=== PATIENT | female | born 1985 | race Caucasian/White ===

== ENCOUNTER 2016-12-04 15:46 | Inpatient (IN) | payer OTHER ==
[~2016-12-04] VITALS: Ht 162.6 cm; Wt 96.8 kg
[2016-12-26 19:27] VITALS: BP 131/74; PULSE 74; TEMP 98.1
[2016-12-26 19:30] VITALS: BP 131/74; PULSE 74; TEMP 98.1
[2016-12-26 19:37] LABS: BASO % 0.1 % (0.0-2.0); EOS # 0.1 (0.0-0.7); EOS % 0.7 % (0-4.0); GRAN # 10.3 (1.4-6.5); GRAN % 74.6 % (42.2-75.2); HEMOGLOBIN 12.3 g/dl (12.5-16.0); LYMPH # 2.4 (1.2-3.4); LYMPH % 17.5 % (20.0-51.0); MEAN CELL VOLUME 88 fl (80.0-100.0); MEAN CORPUSCULAR HEMOGLOBIN 31 pg (27.0-31.0); MEAN CORPUSCULAR HGB CONC 35 g/dl (33.0-37.0); MEAN PLATELET VOLUME 11.9 fl (7.4-10.4); MONO # 0.9 (0.1-0.6); MONO % 6.4 % (1.7-9.3); PLATELET COUNT 234 K/mm3 (130-400); RED BLOOD COUNT 3.99 M/mm3 (4.10-5.30); REDCELL DISTRIBUTION WIDTH-CV 12.7 % (11.5-14.5); WHITE BLOOD COUNT 13.8 K/mm3 (4.8-10.8)
[2016-12-26] MEDS ORDERED: PRILOTC PO (19:44)
[2016-12-26] MEDS ORDERED: PRENATAL1 TA7 PO (19:45)
[2016-12-26 20:30] VITALS: BP 136/80; PULSE 71
[2016-12-26 21:00] VITALS: BP 119/66; PULSE 65
[2016-12-26 21:30] VITALS: BP 125/74; PULSE 70
[2016-12-26 22:00] VITALS: BP 112/62; PULSE 65
[2016-12-27] VITALS (31 sets, daily range): BP systolic 106–143; BP diastolic 55–94; PULSE 59–111; TEMP 98–98.4
[2016-12-28 03:20] VITALS: BP 130/85; PULSE 73; TEMP 97.2
[2016-12-28 08:00] VITALS: BP 130/88; PULSE 76; TEMP 98
[2016-12-28] MEDS ORDERED: IBU800 M1 PO (11:30)
[2016-12-28] MEDS ORDERED: PERCOCET 325 MG1 TA2 PO (11:30)
== END 2016-12-28 16:10 | disposition home or self-care (01) | DRG 775 ==
LOC: EDSTATUS 12-26 10:30 → LDR 12-26 10:45 → LDRO 12-26 15:59 → LDR 12-26 18:35 → OB 12-27 12:15 → LDRO 12-29 15:45
PROVIDERS: Obstetrics & Gynecology
PROC: 10D07Z6 Extraction of Products of Conception, Vacuum, Via Natural or Artificial Opening (ICD-10-PCS; principal; 2016-12-26)
PROC: 3E033VJ Introduction of Other Hormone into Peripheral Vein, Percutaneous Approach (ICD-10-PCS; 2016-12-26)
PROC: 0HQ9XZZ Repair Perineum Skin, External Approach (ICD-10-PCS; 2016-12-26)
DX: O75.89 Other specified complications of labor and delivery (principal); O66.0 Obstructed labor due to shoulder dystocia; O77.0 Labor and delivery complicated by meconium in amniotic fluid; O76 Abnormality in fetal heart rate and rhythm complicating labor and delivery; O70.0 First degree perineal laceration during delivery; Z3A.38 38 weeks gestation of pregnancy; Z37.0 Single live birth
CPT/HCPCS: J2590; J7120

== ENCOUNTER 2019-12-09 00:43 | Emergency (ER) | payer BC ==
[~2019-12-09] VITALS: Ht 162.6 cm; Wt 80.0 kg
[~2019-12-09 00:43] MED LIST: IBU800 M1 PO; PERCOCET 325 MG1 TA2 PO; PRENATAL1 TA7 PO; PRILOTC PO
[2019-12-09 00:49] VITALS: TEMP 97.8
[2019-12-09] MEDS ORDERED: ORTHO TRI-CYCLE1 TAB PO (00:53)
[2019-12-09 02:37] LABS: BASO % 0.2 % (0.0-2.0); EOS # 0.1 (0.0-0.7); EOS % 1.3 % (0-4.0); GRAN % 34.4 % (42.2-75.2); HEMATOCRIT 41.1 % (37.0-47.0); HEMOGLOBIN 13.7 g/dl (12.5-16.0); LYMPH # 4.8 (1.2-3.4); LYMPH % 56.1 % (20.0-51.0); MEAN CELL VOLUME 90 fl (80.0-100.0); MEAN CORPUSCULAR HEMOGLOBIN 30 pg (27.0-31.0); MEAN CORPUSCULAR HGB CONC 33 g/dl (33.0-37.0); MEAN PLATELET VOLUME 10.1 fl (7.4-10.4); MONO # 0.7 (0.1-0.6); MONO % 7.5 % (1.7-9.3); PLATELET COUNT 327 K/mm3 (130-400); RED BLOOD COUNT 4.56 M/mm3 (4.10-5.30); REDCELL DISTRIBUTION WIDTH-CV 12.2 % (11.5-14.5)
[2019-12-09 02:46] LABS: ALANINE AMINOTRANSFERASE 15 U/L (4-34); ALBUMIN 4.1 gm/dL (3.5-5.0); ALKALINE PHOSPHATASE 66 U/L (50-136); ANION GAP 11 mmol/L (7-16); AST,SGOT 24 U/L (15-37); BILIRUBIN,TOTAL 0.3 mg/dL (0.0-1.0); BLOOD UREA NITROGEN 12 mg/dL (7-17); CALCIUM 8.7 mg/dL (8.4-10.2); CARBON DIOXIDE 26 mmol/L (22-30); CHLORIDE 105 mmol/L (98-107); CREATININE, serum 0.76 (0.52-1.25); GLUCOSE 87 mg/dL (74-106); POTASSIUM 4.1 mmol/L (3.4-5.0); SODIUM 142 mmol/L (137-145); TOTAL PROTEIN 7.3 gm/dL (6.4-8.2)
[2019-12-09] MEDS ORDERED: FLEXERIL 1010 MG/TAB PO (02:47)
[2019-12-09] MEDS ORDERED: ZOFRAN ODT4 MG SL (02:47)
[2019-12-09] MEDS ORDERED: VOLTAREN 75 DR75 MG PO (02:47)
[2019-12-09] MEDS ORDERED: ANTIVERT 25MG25 MG PO (02:47)
[2019-12-09 02:57] LABS: D-DIMER < 200.00 ng/mLDDu (200-230)
[2019-12-09 03:06] LABS: TROPONIN-I < 0.012 ng/mL (0.000-0.035)
[2019-12-09 04:43] VITALS: BP 122/86; PULSE 55
== END 2019-12-09 04:52 | disposition home or self-care (01) ==
LOC: COL.ER 00:43
PROVIDERS: Emergency Medicine
DX: R00.2 Palpitations (principal)

== ENCOUNTER → 2021-06-06 | Outpatient (CLI) | payer BC ==
[~2021-06-06] MED LIST changes: +ANTIVERT 25MG25 MG PO; +FLEXERIL 1010 MG/TAB PO; +IBU600 MG PO; +ORTHO TRI-CYCLE1 TAB PO; +OSCAL 500 TAB500 MG PO; +PEPCID 20MG TAB20 MG PO; +PRENATAL TABLET PO; +VOLTAREN 75 DR75 MG PO; +ZOFRAN ODT4 MG SL
== END ==
LOC: ZCOL.LAB 09:46
DX: Z20.822 Contact with and (suspected) exposure to COVID-19 (principal)

== ENCOUNTER 2021-06-09 06:31 | Inpatient (IN) | payer BC ==
[2021-06-09] VITALS (45 sets, daily range): BP systolic 91–1258; BP diastolic 51–107; PULSE 51–96; TEMP 98–99.1
[~2021-06-09] VITALS: Ht 162.6 cm; Wt 95.5 kg
[~2021-06-09 06:31] MED LIST changes: -IBU600 MG PO; -OSCAL 500 TAB500 MG PO; -PEPCID 20MG TAB20 MG PO; -PRENATAL TABLET PO
--- NOTE | 2021-06-09 06:35 | NUR ---
0635- 39.0 G4L2 arrives on unit for scheduled IOL. Ambulatory to LDR4 with spouse. Changes into clean gown. 0645- EFM explained and placed. Patient reports nomrmal movement. Denies any LOF, VB, or regular contractions. VS obtained. Assessment completed. 0655- IV to left FA. Routine labs obtained. IVF infusing. Consent forms explained and signed. 0710- SVE /3 and ballotable. BOWI. Pitocin started at 2mu per orders. Plan of care reviewed with patient who verbalizes understanding. Questions invited and answered. Resting with call light within reach.
[2021-06-09] MEDS ORDERED: OSCAL 500 TAB500 MG PO (07:25)
[2021-06-09] MEDS ORDERED: PRENATAL TABLET PO (07:25)
[2021-06-09] MEDS ORDERED: PEPCID 20MG TAB20 MG PO (07:26)
[2021-06-09 07:29] LABS: BASO % 0.2 % (0.0-2.0); EOS # 0.1 (0.0-0.7); EOS % 2.1 % (0-4.0); GRAN # 3.8 (1.4-6.5); GRAN % 57.8 % (42.2-75.2); HEMOGLOBIN 11.3 g/dl (12.5-16.0); LYMPH # 2.1 (1.2-3.4); LYMPH % 31.2 % (20.0-51.0); MEAN CELL VOLUME 91 fl (80.0-100.0); MEAN CORPUSCULAR HEMOGLOBIN 30 pg (27.0-31.0); MEAN CORPUSCULAR HGB CONC 33 g/dl (33.0-37.0); MEAN PLATELET VOLUME 12.5 fl (7.4-10.4); MONO # 0.5 (0.1-0.6); MONO % 8.2 % (1.7-9.3); PLATELET COUNT 216 K/mm3 (130-400); RED BLOOD COUNT 3.73 M/mm3 (4.10-5.30)
[2021-06-09 07:33] LABS: HEMATOCRIT 33.9 % (37.0-47.0)
--- NOTE | 2021-06-09 13:55 | NUR ---
1355- Intermittent early and late decels. Patient right and left lateral. Pt reports increased vaginal pressure. SVE 7/80/0. 1356- Prolonged decel noted. Patient right and left lateral. Pitocin off. LR bolus infusing. O2 10L via mask. 1401- Dr. Campbell at bedside. 1403- SVE by Dr. Campbell 9-10cm. Dr. Campbell attempts to reduce cervix. Vallec[place] catheter removed. Patricia care provided. Patient instucted on pushing with ctx. 1409- SVE 10cm per Dr. Campbell. Patient repostioned in footplates. Begins to push with Dr. Campbell at bedside and nursing staff at bedside. 1414- Pitocin to 6mu per Dr. Campbell orders. Patient continues to push with contractions. Slow progress. FHR with recurrent variable decels to 70's. Dr. Campbell concents pt for vacuum. 1418- Vacuum applied to occiput by Dr. Campbell. Patient continues to push with ctx as traction applied to occiput by Dr. Campbell via vacuum. 1419- Vacuum removed. MLE by Dr. Campbell 1421- Spontaneous delivery of head. Shoulder dystocia per Dr. Campbell. Additional staff to bedside. See shoulder dystocia flowsheet. 1422- Delivery of body. To mother's chest where dried and stimulated by nursery RN. Cord clamped x2 and cut. Care of to Eliz Grant RN. Pitocin paused. 1425- Spontaneous and intact delivery of placenta. Pitocin to 333ml/hr per protocol. Fundus firm, midline, and bleeding minimal. MLE with 2nd degree perineal laceration repaired by Dr. Campbell. Patricia care provided, pads changed, and ice pack to perineum. Plan of care and safety precautions reviewed. See doctor dictation, anesthesia record, and nurses notes.
[2021-06-10 05:00] VITALS: BP 136/83; PULSE 65; TEMP 97.9
[2021-06-10 08:20] VITALS: BP 130/61; PULSE 59; TEMP 97.7
[2021-06-10] MEDS ORDERED: IBU600 MG PO (09:15)
--- NOTE | 2021-06-10 10:24 | NUR ---
Initial visit; Parents thanked [facility] [employer] [facility] for offering congratulations and God's blessings for the of their son. [facility] thanked family for choosing our hospital.
[2021-06-10 17:00] VITALS: BP 143/78; PULSE 68; TEMP 98
[2021-06-10 19:30] VITALS: BP 129/71; PULSE 58; TEMP 97.8
[2021-06-11 08:00] VITALS: BP 147/95; PULSE 66; TEMP 98
[2021-06-11 08:12] VITALS: BP 147/81
== END 2021-06-11 08:56 | disposition home or self-care (01) | DRG 807 ==
LOC: LDR 06:31 → OB 10:16
PROVIDERS: ADMIT Obstetrics & Gynecology
PROC: 10D07Z6 Extraction of Products of Conception, Vacuum, Via Natural or Artificial Opening (ICD-10-PCS; principal; 2021-06-09)
PROC: 10907ZC Drainage of Amniotic Fluid, Therapeutic from Products of Conception, Via Natural or Artificial Opening (ICD-10-PCS; 2021-06-09)
PROC: 0W8NXZZ Division of Female Perineum, External Approach (ICD-10-PCS; 2021-06-09)
PROC: 3E033VJ Introduction of Other Hormone into Peripheral Vein, Percutaneous Approach (ICD-10-PCS; 2021-06-09)
DX: O76 Abnormality in fetal heart rate and rhythm complicating labor and delivery (principal); Z37.0 Single live birth; O66.0 Obstructed labor due to shoulder dystocia; O69.81X0 Labor and delivery complicated by cord around neck, without compression, not applicable or unspecified; Z3A.39 39 weeks gestation of pregnancy
CPT/HCPCS: J2405; J2590; J7120